=== PATIENT | female | born 1960 | race Caucasian/White ===

== ENCOUNTER 2017-10-06 18:19 | Inpatient (IN) | payer OTHER, MEDICARE ==
[2017-10-06 18:53] LABS: ADD MAN DIFF? NO
[2017-10-06 18:58] LABS: BASO # 0.1 x10^3/uL (0.0-0.2); BASO % 1 % (0-3); EOS # 0.1 x10^3/uL (0.0-0.7); EOS % 1 % (0-3); HEMATOCRIT 34.9 % (36.0-47.0); HEMOGLOBIN 11.5 g/dL (12.0-15.5); LYMPH # 1.3 x10^3/uL (1.0-4.8); LYMPH % 19 % (24-48); MEAN CORPUSCULAR HEMOGLOBIN 30 pg (25-35); MEAN CORPUSCULAR HGB CONC 33 g/dL (31-37); MEAN CORPUSCULAR VOLUME 90 fL (79-100); MONO # 0.5 x10^3/uL (0.0-1.1); MONO % 7 % (0-9); NEUT # 5.1 x10^3uL (1.8-7.7); NEUT % 72 % (31-73); PLATELET COUNT 179 x10^3/uL (140-400); RED BLOOD COUNT 3.86 x10^6/uL (3.50-5.40); RED CELL DISTRIBUTION WIDTH 16.5 % (11.5-14.5); WHITE BLOOD COUNT 7.1 x10^3/uL (4.0-11.0)
[2017-10-06 19:05] LABS: INR 1.3 (0.8-1.1); PROTHROMBIN TIME PATIENT 15.4 SEC (11.7-14.0)
[2017-10-06 19:08] LABS: ANION GAP 7 (6-14); BLOOD UREA NITROGEN 30 mg/dL (7-20); BUN/CREATININE RATIO 18 (6-20); CALCIUM 9.2 mg/dL (8.5-10.1); CARBON DIOXIDE 28 mmol/L (21-32); CHLORIDE 100 mmol/L (98-107); CREATININE 1.7 mg/dL (0.6-1.0); GFR 30.9; GLUCOSE 260 mg/dL (70-99); POTASSIUM 4.6 mmol/L (3.5-5.1); SODIUM 135 mmol/L (136-145)
[2017-10-06 19:13] LABS: DIG < 0.2 ng/mL (0.9-2.0)
[2017-10-06 19:14] LABS: ALBUMIN/GLOBULIN RATIO 0.7 (1.0-1.7); ALK PHOS 376 U/L (46-116); ALT (SGPT) 12 U/L (14-59); AST (SGOT) 12 U/L (15-37); MAGNESIUM 1.9 mg/dL (1.8-2.4); TOTAL BILIRUBIN 1.2 mg/dL (0.2-1.0); TOTAL PROTEIN 7.1 g/dL (6.4-8.2)
[2017-10-06 19:17] LABS: TROPONINI < 0.017 ng/mL (0.000-0.055)
[2017-10-06] MEDS: DIGOXIN IV 500 MCG/2 ML AMPUL. IV (19:17)
[2017-10-06 19:21] LABS: CKMB MASS 0.6 ng/mL (0.0-3.6); CREATINE KINASE 29 U/L (26-192)
[2017-10-06 19:21] LABS: NT-PRO BNP 4465 pg/mL (0-124)
[2017-10-06 19:22] LABS: THYROID STIM HORMONE (TSH) 3.855 uIU/mL (0.358-3.74)
[2017-10-06 20:16] LABS: BILIRUBIN,URINE NEGATIVE (NEG); CLARITY,URINE CLOUDY; COLOR,URINE YELLOW; GLUCOSE,URINE NEGATIVE (NEG); NITRITE,URINE NEGATIVE (NEG); PROTEIN,URINE 100 mg/dL (NEG-TRACE)
[2017-10-06 20:29] LABS: SQUAMOUS EPITHELIAL CELL,UR MANY /LPF
[2017-10-06 20:30] LABS: BACTERIA,URINE MODERATE /HPF (0-FEW)
[2017-10-06 20:31] LABS: RBC,URINE 0 /HPF (0-2)
[2017-10-06] MEDS ORDERED: ONDANSETRON PF 4 MG/2 ML VIAL. IV (20:45)
[2017-10-06] MEDS: FUROSEMIDE 40 MG/4 ML VIAL. IVP (21:08)
[2017-10-07 06:10] LABS: ADD MAN DIFF? NO
[2017-10-07 06:15] LABS: BASO # 0.1 x10^3/uL (0.0-0.2); BASO % 1 % (0-3); EOS # 0.1 x10^3/uL (0.0-0.7); EOS % 2 % (0-3); HEMOGLOBIN 10.8 g/dL (12.0-15.5); LYMPH # 1.3 x10^3/uL (1.0-4.8); LYMPH % 20 % (24-48); MEAN CORPUSCULAR HEMOGLOBIN 29 pg (25-35); MEAN CORPUSCULAR HGB CONC 33 g/dL (31-37); MEAN CORPUSCULAR VOLUME 90 fL (79-100); MONO # 0.6 x10^3/uL (0.0-1.1); MONO % 10 % (0-9); NEUT # 4.3 x10^3uL (1.8-7.7); NEUT % 67 % (31-73); PLATELET COUNT 167 x10^3/uL (140-400); RED BLOOD COUNT 3.68 x10^6/uL (3.50-5.40); RED CELL DISTRIBUTION WIDTH 16.2 % (11.5-14.5); WHITE BLOOD COUNT 6.4 x10^3/uL (4.0-11.0)
[2017-10-07 06:24] LABS: ANION GAP 8 (6-14); BLOOD UREA NITROGEN 28 mg/dL (7-20); CALCIUM 8.7 mg/dL (8.5-10.1); CARBON DIOXIDE 29 mmol/L (21-32); CHLORIDE 101 mmol/L (98-107); CREATININE 1.5 mg/dL (0.6-1.0); GFR 35.7; GLUCOSE 142 mg/dL (70-99); POTASSIUM 3.9 mmol/L (3.5-5.1); SODIUM 138 mmol/L (136-145)
[2017-10-07 08:25] LABS: POC GLUCOSE 132 mg/dL (70-99)
[2017-10-07] MEDS ORDERED: HYDROcodone/APAP 5/325MG 1 TAB TABLET PO (08:45)
[2017-10-07] MEDS: FUROSEMIDE 40 MG/4 ML VIAL. IVP (09:00)
[2017-10-07] MEDS ORDERED: NON FORMULARY ITEM (Gabapentin 300 MG) PO (09:00)
[2017-10-07] MEDS ORDERED: ALBUTEROL SULFATE 2.5 MG/3 ML NEBU. NEB (09:15)
[2017-10-07] MEDS: POTASSIUM CHLORIDE 20 MEQ TABLET.ER. PO ×2 (09:29→20:43)
[2017-10-07] MEDS: metOLazone 2.5 MG TABLET PO (09:29)
[2017-10-07] MEDS: NYSTATIN TOPICAL POWDER 15GM BOTTLE. TP ×2 (09:30→20:44)
[2017-10-07] MEDS: ALBUTEROL SULFATE 2.5 MG/3 ML NEBU. NEB ×4 (09:30→19:44)
[2017-10-07] MEDS: ASPIRIN ENTERIC COATED 81 MG TABLET.DR. PO (09:30)
[2017-10-07] MEDS: APIXABAN 5 MG TABLET. PO ×2 (09:30→20:43)
[2017-10-07] MEDS: DIGOXIN 125 MCG TABLET. PO (09:30)
[2017-10-07] MEDS: FUROSEMIDE 40 MG TABLET. PO (09:30)
[2017-10-07] MEDS: GABAPENTIN 300 MG CAPSULE. PO ×3 (09:30→20:43)
[2017-10-07] MEDS: CARVEDILOL 12.5 MG TABLET. PO ×2 (09:30→17:46)
[2017-10-07] MEDS: PROPAFENONE 150 MG TABLET. PO ×2 (09:31→20:42)
[2017-10-07] MEDS: INSULIN LISPRO 300 UNITS/3 ML INSULN.PEN. SQ ×5 (09:39→20:43)
[2017-10-07 11:30] LABS: POC GLUCOSE 133 mg/dL (70-99)
[2017-10-07] MEDS: BUDESONIDE 0.5 MG/2 ML NEBU. NEB ×2 (11:52→19:44)
[2017-10-07] MEDS: ANTI-COAG MONITOR BY PHARMACY. MC (12:10)
[2017-10-07 15:51] LABS: POC GLUCOSE 48 mg/dL (70-99)
[2017-10-07] MEDS ORDERED: DEXTROSE ORAL GEL 15 GM TUBE. (16:19)
[2017-10-07] MEDS: DEXTROSE ORAL GEL 15 GM TUBE. PO (16:40)
[2017-10-07 17:18] LABS: POC GLUCOSE 51 mg/dL (70-99)
[2017-10-07 17:51] LABS: POC GLUCOSE 85 mg/dL (70-99)
[2017-10-07 20:34] LABS: POC GLUCOSE 124 mg/dL (70-99)
[2017-10-07] MEDS: INSULIN GLARGINE 300 UNITS/3 ML INSULN.PEN. SQ (20:50)
[2017-10-08 03:46] LABS: POC GLUCOSE 151 mg/dL (70-99)
[2017-10-08 08:04] LABS: POC GLUCOSE 175 mg/dL (70-99)
[2017-10-08] MEDS: ALBUTEROL SULFATE 2.5 MG/3 ML NEBU. NEB ×4 (08:10→19:59)
[2017-10-08] MEDS: BUDESONIDE 0.5 MG/2 ML NEBU. NEB ×2 (08:10→19:59)
[2017-10-08] MEDS: GABAPENTIN 300 MG CAPSULE. PO ×3 (08:28→19:54)
[2017-10-08] MEDS: APIXABAN 5 MG TABLET. PO ×2 (08:28→19:54)
[2017-10-08] MEDS: PROPAFENONE 150 MG TABLET. PO ×2 (08:28→19:54)
[2017-10-08] MEDS: ASPIRIN ENTERIC COATED 81 MG TABLET.DR. PO (08:29)
[2017-10-08] MEDS: CARVEDILOL 12.5 MG TABLET. PO ×2 (08:29→17:44)
[2017-10-08] MEDS: DIGOXIN 125 MCG TABLET. PO (08:29)
[2017-10-08] MEDS: metOLazone 2.5 MG TABLET PO (08:29)
[2017-10-08] MEDS: NYSTATIN TOPICAL POWDER 15GM BOTTLE. TP ×2 (08:30→19:54)
[2017-10-08] MEDS: POTASSIUM CHLORIDE 20 MEQ TABLET.ER. PO ×2 (08:30→19:54)
[2017-10-08] MEDS: INSULIN LISPRO 300 UNITS/3 ML INSULN.PEN. SQ ×7 (08:37→19:55)
[2017-10-08] MEDS: FUROSEMIDE 100 MG/10 ML VIAL. IVP ×2 (10:52→15:25)
[2017-10-08 11:21] LABS: POC GLUCOSE 194 mg/dL (70-99)
[2017-10-08] MEDS: ANTI-COAG MONITOR BY PHARMACY. MC (13:41)
[2017-10-08] MEDS ORDERED: ALBUTEROL SULFATE 2.5 MG/3 ML NEBU. NEB (14:15)
[2017-10-08 14:37] LABS: HEMATOCRIT 32.1 % (36.0-47.0); HEMOGLOBIN 10.4 g/dL (12.0-15.5); MEAN CORPUSCULAR HEMOGLOBIN 29 pg (25-35); MEAN CORPUSCULAR HGB CONC 33 g/dL (31-37); MEAN CORPUSCULAR VOLUME 90 fL (79-100); PLATELET COUNT 154 x10^3/uL (140-400); RED BLOOD COUNT 3.57 x10^6/uL (3.50-5.40); RED CELL DISTRIBUTION WIDTH 16.4 % (11.5-14.5); WHITE BLOOD COUNT 6.8 x10^3/uL (4.0-11.0)
[2017-10-08 14:55] LABS: ANION GAP 7 (6-14); BLOOD UREA NITROGEN 26 mg/dL (7-20); CALCIUM 8.7 mg/dL (8.5-10.1); CARBON DIOXIDE 29 mmol/L (21-32); CHLORIDE 101 mmol/L (98-107); CREATININE 1.5 mg/dL (0.6-1.0); GFR 35.7; GLUCOSE 170 mg/dL (70-99); POTASSIUM 4.1 mmol/L (3.5-5.1); SODIUM 137 mmol/L (136-145)
[2017-10-08 17:02] LABS: POC GLUCOSE 150 mg/dL (70-99)
[2017-10-08 19:58] LABS: POC GLUCOSE 95 mg/dL (70-99)
[2017-10-08] MEDS: INSULIN GLARGINE 300 UNITS/3 ML INSULN.PEN. SQ (20:50)
[2017-10-09] MEDS: ALBUTEROL SULFATE 2.5 MG/3 ML NEBU. NEB ×3 (06:58→15:09)
[2017-10-09] MEDS: BUDESONIDE 0.5 MG/2 ML NEBU. NEB (06:59)
[2017-10-09 07:28] LABS: POC GLUCOSE 66 mg/dL (70-99)
[2017-10-09] MEDS: INSULIN LISPRO 300 UNITS/3 ML INSULN.PEN. SQ ×6 (07:30→17:33)
[2017-10-09] MEDS: POTASSIUM CHLORIDE 20 MEQ TABLET.ER. PO (08:30)
[2017-10-09] MEDS: GABAPENTIN 300 MG CAPSULE. PO ×2 (08:30→12:32)
[2017-10-09] MEDS: FUROSEMIDE 100 MG/10 ML VIAL. IVP (08:30)
[2017-10-09] MEDS: metOLazone 2.5 MG TABLET PO (08:31)
[2017-10-09] MEDS: ASPIRIN ENTERIC COATED 81 MG TABLET.DR. PO (08:31)
[2017-10-09] MEDS: PROPAFENONE 150 MG TABLET. PO (08:31)
[2017-10-09] MEDS: APIXABAN 5 MG TABLET. PO (08:31)
[2017-10-09] MEDS: DIGOXIN 125 MCG TABLET. PO (08:32)
[2017-10-09] MEDS: CARVEDILOL 12.5 MG TABLET. PO ×2 (08:33→17:29)
[2017-10-09] MEDS: NYSTATIN TOPICAL POWDER 15GM BOTTLE. TP (08:34)
[2017-10-09 08:45] LABS: POC GLUCOSE 96 mg/dL (70-99)
[2017-10-09 11:04] LABS: POC GLUCOSE 171 mg/dL (70-99)
[2017-10-09 16:57] LABS: POC GLUCOSE 143 mg/dL (70-99)
== END 2017-10-09 19:00 | disposition home or self-care (01) | DRG 292 ==
LOC: ER 18:19 → 2 NORTH 20:39
DX: I11.0 Hypertensive heart disease with heart failure (principal); E44.0 Moderate protein-calorie malnutrition; Z68.44 Body mass index [BMI] 60.0-69.9, adult; I50.43 Acute on chronic combined systolic (congestive) and diastolic (congestive) heart failure; I25.5 Ischemic cardiomyopathy; E66.01 Morbid (severe) obesity due to excess calories; E78.5 Hyperlipidemia, unspecified; I25.10 Atherosclerotic heart disease of native coronary artery without angina pectoris; I27.20 Pulmonary hypertension, unspecified; I48.2 Chronic atrial fibrillation; F41.9 Anxiety disorder, unspecified; E11.42 Type 2 diabetes mellitus with diabetic polyneuropathy; M19.90 Unspecified osteoarthritis, unspecified site; J45.909 Unspecified asthma, uncomplicated; I25.2 Old myocardial infarction; Z90.710 Acquired absence of both cervix and uterus; Z95.5 Presence of coronary angioplasty implant and graft; Z79.899 Other long term (current) drug therapy; Z88.0 Allergy status to penicillin; Z79.01 Long term (current) use of anticoagulants; Z82.49 Family history of ischemic heart disease and other diseases of the circulatory system; Z83.3 Family history of diabetes mellitus; Z80.9 Family history of malignant neoplasm, unspecified
CPT/HCPCS: 36415; 71045; 71046; 80048; 80053; 80162; 81001; 82553; 82962; 83735; 83880; 84443; 84484; 85025; 85027; 85610; 87086; 93005; 94640; 96374; 96376; 97161-GP; 97166-GO; 99285; 99285-25; J1160; J1815; J1940; J7613; J7626